=== PATIENT | male | born 1965 | race Caucasian/White ===

== ENCOUNTER 2016-05-02 11:22 | Emergency (ER) | payer OTHER ==
[~2016-05-02] VITALS: Ht 182.9 cm; Wt 123.5 kg
[~2016-05-02 11:22] MED LIST changes: -BLOOD GLUCOSE M1 KIT; -BLOOD GLUCOSE T1 TES; -METF500T PO; -METF850T PO; -PRED1SUS EACH EYE; -PRED1SUS6 EACH EYE; -ROSU1TAB6 PO
[2016-05-02 11:23] VITALS: BP 154/101; PULSE 108; RESP 20; TEMP 98.1; O2SAT 98
--- NOTE | 2016-05-02 12:23 | PD ---
HPI Chief Complaint: Diabetic Time Seen by Provider: 11:56 Travel History International Travel<30 days: No Contact w/Intl Traveler<30days: No Traveled to known affect area: No History of Present Illness HPI The patient is a 51-year-old male who presents to the emergency department for elevated blood glucose. The patient was sent to the emergency department by his primary physician for elevated blood glucose. The patient had outpatient laboratory evaluation on this morning which revealed a glucose of 405 and the patient was referred to the emergency department. The patient was recently seen by the fiberglass quality technician, Dr. Hickey, placed on steroid eyedrops for allergic eyes and then transition to antihistamine eyedrops. The patient notes her last several months he has had some polydipsia and polyuria, however, denies any polyphagia. The patient denies any previous history of diabetes. Patient has complaint is intermittent nausea, but denies any current nausea, vomiting, or abdominal pain. Symptoms are mild to moderate, have been ongoing for several weeks. PFSH Past Medical History Anxiety: Yes Hypertension: Yes Immunizations Current: Yes Influenza Vaccination: Yes Past Surgical History Tonsillectomy: Yes Social History Alcohol Use: No Tobacco Use: No Substance Use: No Allergies-Medications (Allergen,Severity, Reaction): Coded Allergies: No Known Allergies (Unverified , 05/02/16) Reported Meds & Prescriptions Reported Meds & Active Scripts Active Blood Glucose Test Strips 1 Porsche Porsche 1 Ea .ROUTE DIRECTED Blood Glucose Monitoring W/Device (Device) 1 Kit Kit 1 Kit .ROUTE DIRECTED Metformin (Metformin HCl) 850 Mg Tab 850 Mg PO BIDPC 30 Days With meals Reported Sertraline (Sertraline HCl) 100 Mg Tab 100 Mg PO DAILY Lisinopril 40 Mg Tab 40 Mg PO DAILY Review of Systems Except as stated in HPI: all other systems reviewed are Neg General / Constitutional: No: Fever, Chills Cardiovascular: No: Chest Pain or Discomfort Respiratory: No: Shortness of Breath Gastrointestinal: Positive: Nausea (intermittent, denies current nausea), No: Vomiting, Abdominal Pain Genitourinary: No: Dysuria Musculoskeletal: No: Myalgias Endocrine: Positive: Polyuria, Polydipsia Physical Exam Narrative GENERAL: Awake, alert, pleasant 51-year-old male who appears his stated age and is in no acute respiratory distress. SKIN: Warm and dry. HEAD: Atraumatic. Normocephalic. EYES: Pupils equal and round. No scleral icterus. No injection or drainage. ENT: No nasal bleeding or discharge. Slightly dry mucous members. NECK: Trachea midline. No JVD. CARDIOVASCULAR: Regular, tachycardic with a heart rate of 105. RESPIRATORY: No accessory muscle use. Clear to auscultation. Breath sounds equal bilaterally. GASTROINTESTINAL: Abdomen soft, non-tender, nondistended. MUSCULOSKELETAL: No obvious deformities. No clubbing. No cyanosis. No edema. NEUROLOGICAL: Awake and alert. No obvious cranial nerve deficits. Motor grossly within normal limits. Normal speech. PSYCHIATRIC: Appropriate mood and affect; insight and judgment normal. Data Data Last Documented VS Vital Signs Date Time Temp Pulse Resp B/P Pulse Ox O2 Delivery O2 Flow Rate FiO2 05/02/16 11:23 98.1 108 20 154/101 98 Room Air Orders Resp Blood Gas Venous (05/02/16 ) Sodium Chlor 0.9% 1000 Ml Inj (Ns 1000 M (05/02/16 12:30) Sodium Chlor 0.9% 1000 Ml Inj (Ns 1000 M (05/02/16 12:30) Blood Gas Venous (Vbg) (05/02/16 12:28) Insulin Aspart Inj (Novolog Inj) (05/02/16 14:30) Sodium Chlor 0.9% 1000 Ml Inj (Ns 1000 M (05/02/16 14:30) Labs Laboratory Tests Test 05/02/16 12:28 Blood Gas Puncture Site CENTRAL LINE Blood Gas Patient Temperature 98.6 Venous Blood pH 7.40 Venous Blood Partial Pressure 45 mmHg CO2 Venous Blood Partial Pressure 33 mmHg O2 Venous Blood HCO3 27 mmol/L Venous Blood Oxygen Saturation 66 % Venous Blood Oxygen Content 14.1 Vol % Venous Blood Base Excess 2.6 mmol/L Blood Gas Inspired Oxygen 21 % [facility] Medical Decision Making Medical Screen Exam Complete: Yes Emergency Medical Condition: Yes Medical Record Reviewed: Yes Interpretation(s) Laboratory Tests Test 05/02/16 12:28 Blood Gas Puncture Site CENTRAL LINE Blood Gas Patient Temperature 98.6 Venous Blood pH 7.40 Venous Blood Partial Pressure 45 mmHg CO2 Venous Blood Partial Pressure 33 mmHg O2 Venous Blood HCO3 27 mmol/L Venous Blood Oxygen Saturation 66 % Venous Blood Oxygen Content 14.1 Vol % Venous Blood Base Excess 2.6 mmol/L Blood Gas Inspired Oxygen 21 % Differential Diagnosis Differential diagnosis includes no onset diabetes, type 1 diabetes, insulin resistance, dehydration, electrolyte abnormality, medication side effect. Narrative Course IV was established, labs are drawn and sent, and the patient was placed on cardiac telemetry monitoring and continuous pulse oximetry monitoring. I reviewed the patient's blood work he had performed this morning, anion gap is normal, however, blood glucose was elevated at 405. Therefore, VBG was sent to lab. UA performed this morning on outpatient labs revealed 100 of glucose and 40 ketones. The patient was administered 2 L of IV fluids. Blood glucose was then reevaluated. VBG pH is unremarkable. The patient does not have DKA. Blood glucose will be reevaluated at 2 PM. Blood sugar was still 390, therefore , the patient was administered insulin 8 units subcutaneously and 1 more liter of IV fluids. Blood glucose was reevaluated at 4 PM, was done at 301, patient will be discharged home on metformin. Diagnosis Primary Impression: Hyperglycemia Patient Instructions: General Instructions Additional Instructions: Metformin as directed. Follow-up with your primary physician and condominium manager as scheduled. Return if symptoms worsen or progress. Med/Other Pt SpecificInfo: Prescription(s) given Scripts Metformin 850 Mg Pvl489 Mg PO BIDPC 30 Days Ref 0 With meals Prov:Leonardo Canela MD 05/02/16 Disposition: DISCHARGE HOME Condition: Stable Leonardo Canela MD May 02, 2016 12:23
[2016-05-02] MEDS ORDERED: SODIUM CHLOR 0.9% 1000 ML INJ 1,000 ML IV ONE ×3 (12:30→14:30)
[2016-05-02 12:38] LABS: BLOOD GAS VENOUS BASE EXCESS 2.6 mmol/L (-2-2); BLOOD GAS VENOUS HCO3 27 mmol/L (22-26); BLOOD GAS VENOUS O2 CONTENT 14.1 Vol % (9.0-17.0); BLOOD GAS VENOUS O2 HGB SAT 66 % (70-76); BLOOD GAS VENOUS PCO2 45 mmHg (44-48); BLOOD GAS VENOUS PO2 33 mmHg (35-40); TEMP CORR TO 98.6
[2016-05-02 12:39] LABS: CRITICAL VALUE NO; DRAW SITE CENTRAL LINE; FIO2 21 %; STAT YES
[2016-05-02] MEDS ORDERED: METF850T PO (14:29)
[2016-05-02] MEDS ORDERED: INSULIN ASPART 1,000 UNITS/10 ML VIAL SQ ONE (14:30)
[2016-05-02] MEDS ORDERED: BLOOD GLUCOSE M1 KIT (15:03)
[2016-05-02] MEDS ORDERED: BLOOD GLUCOSE T1 TES (15:03)
[2016-05-03] MEDS ORDERED: BLOOD GLUCOSE T1 TES (11:34)
[2016-05-18] MEDS ORDERED: METF500T PO (08:46)
[2016-05-18] MEDS ORDERED: LISI40TA PO (08:46)
[2016-05-18] MEDS ORDERED: PRED1SUS6 EACH EYE (13:21)
[2016-06-09] MEDS ORDERED: PRED1SUS EACH EYE (09:00)
[2016-07-06] MEDS ORDERED: ROSU1TAB6 PO (11:40)
[2016-07-25] MEDS ORDERED: PRED1SUS6 EACH EYE (09:02)
== END 2016-05-02 17:12 | disposition home or self-care (01) ==
LOC: NEPA 11:22
DX: E11.65 Type 2 diabetes mellitus with hyperglycemia (principal); Z79.84 Long term (current) use of oral hypoglycemic drugs
CPT/HCPCS: 82805; 96360; 96361; 96372; 99284; J1815; J7030

== ENCOUNTER → 2016-05-02 | Outpatient (CLI) | payer OTHER ==
[~2016-05-02] MED LIST: BLOOD GLUCOSE M1 KIT; BLOOD GLUCOSE T1 TES; LISI40TA PO; METF500T PO; METF850T PO; PRED1SUS EACH EYE; PRED1SUS6 EACH EYE; ROSU1TAB6 PO; SERT-129 PO
[2016-05-02 09:34] LABS: BLOOD, URINE NEG (NEG); GLUCOSE,URINE 1000 mg/dL (NEG); KETONE, URINE 40 mg/dL (NEG); NITRITE,URINE NEG (NEG); URINE COLOR LIGHT-YELLOW (YELLW/STRAW)
[2016-05-02 09:39] LABS: COMMENT (UR) CULT NOT INDICATED; CULTURE IF INDICATED CULT NOT INDICATED
[2016-05-02 09:50] LABS: AUTOMATED NEUTROPHIL # 3.1 TH/MM3 (1.8-7.7); BASOPHIL # 0.1 TH/MM3 (0-0.2); BASOPHIL % 1.9 % (0.0-2.0); EOSINOPHIL # 0.2 TH/MM3 (0-0.4); EOSINOPHIL % 2.3 % (0.0-4.0); HEMATOCRIT 44.3 % (39.0-51.0); HEMO FLAGS DIFF FINAL; LYMPHOCYTE # 2.8 TH/MM3 (1.0-4.8); MEAN CELL VOLUME 86.7 FL (80.0-100.0); MEAN CORPUSCULAR HEMOGLOBIN 29.6 PG (27.0-34.0); MEAN CORPUSCULAR HGB CONC 34.1 % (32.0-36.0); MONO % 8.2 % (0.0-8.0); NEUT % 46.6 % (16.0-70.0); PLATELET COUNT 203 TH/MM3 (150-450); RED BLOOD COUNT 5.11 MIL/MM3 (4.50-5.90); WHITE BLOOD COUNT 6.8 TH/MM3 (4.0-11.0)
[2016-05-02 10:30] LABS: ALKALINE PHOSPHATASE 129 U/L (45-117); ALT (GPT) 67 U/L (12-78); ANION GAP 13 MEQ/L (5-15); AST (GOT) 16 U/L (15-37); BICARBONATE 23.8 MEQ/L (21.0-32.0); BLOOD UREA NITROGEN 15 MG/DL (7-18); CHLORIDE 95 MEQ/L (98-107); GLOMERULAR FILTRATION RATE 64 ML/MIN (>89); HDL CHOLESTEROL 27.2 MG/DL (40.0-60.0); SODIUM (NA) 132 MEQ/L (136-145); TOTAL BILIRUBIN ADULT 0.5 MG/DL (0.2-1.0)
[2016-05-02 10:31] LABS: POTASSIUM 4.8 MEQ/L (3.5-5.1)
[2016-05-02 10:39] LABS: GLUCOSE,FASTING 405 MG/DL (74-99)
[2016-05-02 17:14] LABS: HEMOGLOBIN A1a 0.8 %; HEMOGLOBIN A1b 1.4 %; HEMOGLOBIN Ao 72.5 %; HEMOGLOBIN LA1C 4.1 %; HEMOGLOBIN P3 6.1 %
== END ==
LOC: CLAB 09:03
PROVIDERS: ATTEND Nurse Practitioner Family
DX: R63.1 Polydipsia (principal); E78.1 Pure hyperglyceridemia; R11.0 Nausea
CPT/HCPCS: 36415; 80053; 80061; 81001; 83036; 84443; 85025

== ENCOUNTER → 2016-05-04 | Outpatient (CLI) | payer OTHER ==
[~2016-05-04] MED LIST changes: +BLOOD GLUCOSE M1 KIT; +BLOOD GLUCOSE T1 TES; +METF500T PO; +METF850T PO; +PRED1SUS EACH EYE; +PRED1SUS6 EACH EYE; +ROSU1TAB6 PO
[2016-05-04 10:17] LABS: ALKALINE PHOSPHATASE 101 U/L (45-117); ALT (GPT) 56 U/L (12-78); ANION GAP 11 MEQ/L (5-15); AST (GOT) 26 U/L (15-37); BICARBONATE 23.1 MEQ/L (21.0-32.0); BLOOD UREA NITROGEN 12 MG/DL (7-18); CHLORIDE 100 MEQ/L (98-107); GLOMERULAR FILTRATION RATE 95 ML/MIN (>89); GLUCOSE,FASTING 278 MG/DL (74-99); POTASSIUM 4.2 MEQ/L (3.5-5.1); SODIUM (NA) 134 MEQ/L (136-145); TOTAL BILIRUBIN ADULT 0.6 MG/DL (0.2-1.0)
[2016-05-04 16:24] LABS: HEMOGLOBIN A1a 1.1 %; HEMOGLOBIN A1b 1.2 %; HEMOGLOBIN Ao 74.8 %; HEMOGLOBIN F 1.6 %; HEMOGLOBIN LA1C 3.2 %
[2016-05-06 03:52] LABS: ISLET CELL ANTIBODY SCREEN NEGATIVE (NEGATIVE); ISLET CELL ANTIBODY TITER ND JDF (())
[2016-05-06 17:52] LABS: THYROGLOB ABS LESS THAN 1 IU/mL (< OR = 1)
== END ==
LOC: CLAB 08:44
PROVIDERS: ATTEND Internal Medicine Endocrinology, Diabetes & Metabolism
DX: E11.9 Type 2 diabetes mellitus without complications (principal); I10 Essential (primary) hypertension; E78.5 Hyperlipidemia, unspecified; E03.9 Hypothyroidism, unspecified
CPT/HCPCS: 36415; 80053; 80061; 83036; 83519; 83525; 84439; 84443; 84681; 86341; 86376; 86800

== ENCOUNTER → 2016-08-29 | Outpatient (CLI) | payer OTHER ==
[~2016-08-29] MED LIST changes: -METF500T PO; +METF500T4 PO; -METF850T PO; -PRED1SUS EACH EYE; -PRED1SUS6 EACH EYE
[2016-08-29 09:40] LABS: AUTOMATED NEUTROPHIL # 3.4 TH/MM3 (1.8-7.7); BASOPHIL # 0.1 TH/MM3 (0-0.2); BASOPHIL % 1.5 % (0.0-2.0); EOSINOPHIL # 0.4 TH/MM3 (0-0.4); EOSINOPHIL % 5.5 % (0.0-4.0); HEMATOCRIT 42.7 % (39.0-51.0); HEMO FLAGS DIFF FINAL; LYMPHOCYTE # 2.7 TH/MM3 (1.0-4.8); MEAN CELL VOLUME 89.5 FL (80.0-100.0); MEAN CORPUSCULAR HEMOGLOBIN 30.6 PG (27.0-34.0); MEAN CORPUSCULAR HGB CONC 34.2 % (32.0-36.0); PLATELET COUNT 256 TH/MM3 (150-450); RED BLOOD COUNT 4.77 MIL/MM3 (4.50-5.90); RED CELL DISTRIBUTION WIDTH 13.2 % (11.6-17.2)
[2016-08-29 10:00] LABS: ANION GAP 5 MEQ/L (5-15); AST (GOT) 19 U/L (15-37); BLOOD UREA NITROGEN 16 MG/DL (7-18); CHLORIDE 106 MEQ/L (98-107); GLOMERULAR FILTRATION RATE 81 ML/MIN (>89); POTASSIUM 4.3 MEQ/L (3.5-5.1); SODIUM (NA) 139 MEQ/L (136-145)
[2016-08-29 10:05] LABS: GLUCOSE,FASTING 91 MG/DL (74-99)
[2016-08-29 10:17] LABS: ALKALINE PHOSPHATASE 74 U/L (45-117); ALT (GPT) 33 U/L (12-78); FREE T4 0.93 NG/DL (0.76-1.46); LDL CHOLESTEROL 41 MG/DL (0-99); TOTAL BILIRUBIN ADULT 0.5 MG/DL (0.2-1.0)
[2016-08-29 15:57] LABS: HEMOGLOBIN A1b 1.6 %; HEMOGLOBIN Ao 85.4 %; HEMOGLOBIN LA1C 1.9 %; HEMOGLOBIN P3 3.7 %
== END ==
LOC: CLAB 09:01
PROVIDERS: ATTEND Nurse Practitioner Family
DX: E11.9 Type 2 diabetes mellitus without complications (principal); I10 Essential (primary) hypertension; E78.5 Hyperlipidemia, unspecified; E03.9 Hypothyroidism, unspecified
CPT/HCPCS: 36415; 80053; 80061; 83036; 84439; 84443; 85025

== ENCOUNTER → 2016-11-29 | Outpatient (CLI) | payer OTHER ==
[~2016-11-29] MED LIST changes: +PNEU13P IM; +VICT18IN SQ
[2016-11-29 09:52] LABS: ANION GAP 6 MEQ/L (5-15); AST (GOT) 16 U/L (15-37); BICARBONATE 28.1 MEQ/L (21.0-32.0); BLOOD UREA NITROGEN 15 MG/DL (7-18); CHLORIDE 104 MEQ/L (98-107); GLOMERULAR FILTRATION RATE 75 ML/MIN (>89); GLUCOSE,FASTING 95 MG/DL (74-99); POTASSIUM 4.4 MEQ/L (3.5-5.1); SODIUM (NA) 138 MEQ/L (136-145)
[2016-11-29 09:53] LABS: ALT (GPT) 30 U/L (12-78)
[2016-11-29 10:01] LABS: ALKALINE PHOSPHATASE 66 U/L (45-117); FREE T4 0.89 NG/DL (0.76-1.46); HDL CHOLESTEROL 47.7 MG/DL (40.0-60.0); LDL CHOLESTEROL 42 MG/DL (0-99); TOTAL BILIRUBIN ADULT 0.6 MG/DL (0.2-1.0)
[2016-11-29 15:34] LABS: HEMOGLOBIN A1a 0.9 %; HEMOGLOBIN A1b 1.8 %; HEMOGLOBIN Ao 85.3 %; HEMOGLOBIN P3 3.8 %
== END ==
LOC: CLAB 08:35
PROVIDERS: ATTEND Internal Medicine Endocrinology, Diabetes & Metabolism
DX: E11.9 Type 2 diabetes mellitus without complications (principal); I10 Essential (primary) hypertension; E78.5 Hyperlipidemia, unspecified; E03.9 Hypothyroidism, unspecified
CPT/HCPCS: 36415; 80053; 80061; 83036; 84439; 84443

== ENCOUNTER → 2017-05-24 | Outpatient (CLI) | payer OTHER ==
[~2017-05-24] MED LIST changes: +LISI-515 PO; -LISI40TA PO; -PNEU13P IM
[2017-05-24 09:11] LABS: HEMATOCRIT 42.9 % (39.0-51.0); HEMOGLOBIN 14.6 GM/DL (13.0-17.0); MEAN CELL VOLUME 89.9 FL (80.0-100.0); MEAN CORPUSCULAR HEMOGLOBIN 30.7 PG (27.0-34.0); MEAN CORPUSCULAR HGB CONC 34.1 % (32.0-36.0); MEAN PLATELET VOLUME 8.2 FL (7.0-11.0); PLATELET COUNT 245 TH/MM3 (150-450); RED BLOOD COUNT 4.77 MIL/MM3 (4.50-5.90); RED CELL DISTRIBUTION WIDTH 13.1 % (11.6-17.2); WHITE BLOOD COUNT 6.2 TH/MM3 (4.0-11.0)
[2017-05-24 09:52] LABS: ALBUMIN 3.9 GM/DL (3.4-5.0); AST (GOT) 24 U/L (15-37); BICARBONATE 26.9 MEQ/L (21.0-32.0); BLOOD UREA NITROGEN 16 MG/DL (7-18); CALCIUM 8.8 MG/DL (8.5-10.1); CHLORIDE 109 MEQ/L (98-107); CREATININE 0.89 MG/DL (0.60-1.30); GLOMERULAR FILTRATION RATE 90 ML/MIN (>89); GLUCOSE,FASTING 83 MG/DL (74-99); SODIUM (NA) 141 MEQ/L (136-145)
[2017-05-24 09:53] LABS: CHOLESTEROL 99 MG/DL (120-200)
[2017-05-24 10:02] LABS: ALKALINE PHOSPHATASE 66 U/L (45-117); ALT (GPT) 24 U/L (12-78); CHOLESTEROL/ HDL RATIO 2.29 RATIO; FREE T4 0.93 NG/DL (0.76-1.46); HDL CHOLESTEROL 43.2 MG/DL (40.0-60.0); LDL CHOLESTEROL 35 MG/DL (0-99); TOTAL BILIRUBIN ADULT 0.6 MG/DL (0.2-1.0); TRIGLYCERIDES 105 MG/DL (42-150)
[2017-05-24 15:04] LABS: HEMOGLOBIN A1C 5.1 % (4.3-6.0)
== END ==
LOC: CLAB 08:16
PROVIDERS: ATTEND Nurse Practitioner Family
DX: E11.9 Type 2 diabetes mellitus without complications (principal); I10 Essential (primary) hypertension; E78.1 Pure hyperglyceridemia; E03.9 Hypothyroidism, unspecified; E55.9 Vitamin D deficiency, unspecified
CPT/HCPCS: 36415; 80053; 80061; 82043; 82306; 83036; 84439; 84443; 85027